=== PATIENT | female | born 1980 | race Caucasian/White ===

== ENCOUNTER 2016-10-02 10:37 | Emergency (ER) | payer OTHER ==
[~2016-10-02] VITALS: Ht 170.2 cm; Wt 131.5 kg
[~2016-10-02 10:37] MED LIST: AZIT250T6 PO; DICY20TA30 PO; FLUO40CA2 PO; LORA2TAB89 PO; ONDA4TAB7 PO; OXYC1TAB9 PO
[2016-10-02 11:59] VITALS: BP 149/88
[2016-10-02] MEDS ORDERED: CLIN-44 PO (12:39)
[2016-10-02] MEDS ORDERED: HYDR-971 PO (12:39)
--- NOTE | 2016-10-02 12:39 | PHYS DOC ---
Past Medical History Past Medical History: Anxiety, Depression, Other Additional Past Medical Histor: GALLBLADDER PROBLEMS BUT NOT REMOVED, COLITIS Past Surgical History: Tubal ligation Alcohol Use: None Drug Use: None Adult General Chief Complaint Chief Complaint: DENTAL PROBLEM HPI HPI Patient is a 36 year old female presents emergency department stating that she' s had a 3-4 day history of left lower back dental pain and discomfort. She states that she may have broken off tooth off. She states that she's had a foul taste coming from her mouth area. She states that she's had fevers at home as been taken Tylenol and ibuprofen help with this. Patient states she has a dental appointment set up for Sunday. Patient then states that she has also tried some dental wax over the area without relief. Review of Systems Review of Systems Constitutional: Denies fever or chills [] Eyes: Denies change in visual acuity, redness, or eye pain [] HENT: Denies nasal congestion or sore throat. C/o dental pain Respiratory: Denies cough or shortness of breath [] Cardiovascular: No additional information not addressed in HPI [] GI: Denies abdominal pain, nausea, vomiting, bloody stools or diarrhea [] : Denies dysuria or hematuria [] Musculoskeletal: Denies back pain or joint pain [] Integument: Denies rash or skin lesions [] Neurologic: Denies headache, focal weakness or sensory changes [] Allergies Allergies Allergies Coded Allergies Type Severity Reaction Last Updated Verified Penicillins Allergy Intermediate 05/03/16 Yes Physical Exam Physical Exam Constitutional: Well developed, well nourished, no acute distress, non-toxic appearance. [] HENT: Normocephalic, atraumatic, bilateral external ears normal, oropharynx moist, no oral exudates, nose normal. Bilateral tympanic membranes appear to be normal. Throat with no erythematous or exudate noted. Patient did have a fractured tooth on the left lower back area. Also appears that she has had a crown on the area that has been broken off. She does have tenderness along the gumline. No drainage or discharge noted. Eyes: PERRLA, EOMI, conjunctiva normal, no discharge. [] Neck: Normal range of motion, no tenderness, supple, no stridor. [] Cardiovascular:Heart rate regular rhythm, no murmur [] Lungs & Thorax: Bilateral breath sounds clear to auscultation [] Skin: Warm, dry, no erythema, no rash. [] Back: No tenderness Extremities: No tenderness, no cyanosis, no clubbing, ROM intact, no edema. [] Neurologic: Alert and oriented X 3, normal motor function, normal sensory function, no focal deficits noted. [] Psychologic: Affect normal, judgement normal, mood normal. [] Current Patient Data Vital Signs Vital Signs Date Time Temp Pulse Resp B/P Pulse Ox O2 Delivery O2 Flow Rate FiO2 10/02/16 11:59 98.1 96 16 96 Room Air 98.1 EKG EKG [] Radiology/Procedures Radiology/Procedures [] Course & Med Decision Making Course & Med Decision Making Pertinent Labs and Imaging studies reviewed. (See chart for details) She was recommended to use Tylenol and ibuprofen for fever chills generalized body aches and discomfort as well as to help with pain and discomfort. She'll be provided with some hydrocodone in which she was instructed that this medication will cause drowsiness do not take any be alert and oriented. Patient will be placed on clindamycin. Recommended her to keep her follow-up appointment on Sunday with the dentist. Patient will be discharged home in stable condition since symptoms to return back to the emergency department as been provided. Patient agrees with discharge instructions treatment regimens and follow-up recommendations. [] Dragon Disclaimer Dragon Disclaimer This electronic medical record was generated, in whole or in part, using a voice recognition dictation system. Departure Departure Impression: Primary Impression: Pain, dental Additional Impression: Dental abscess Disposition: HOME, SELF-CARE Condition: STABLE Referrals: NO PCP (PCP) Patient Instructions: Dental Abscess, Dental Pain, [id number] Additional Instructions: Activity as tolerated. Medication as prescribed. Hydrocodone will cause drowsiness do not take any be alert and oriented. Keep your follow-up appointment with her dentist that you have on Sunday. Return to the emergency department sign symptoms of become worse. Scripts Hydrocodone/Apap 5-325 ([place]rott 5-325 Tablet)1 Each Tablet1 Tab PO PRN Q6HRS PRN PAIN #6 TAB Prov:CÉSAR LEE NP 10/02/16 Clindamycin Hcl 150 Mg Capsule3 Cap PO TID 10 Days Prov:CÉSAR LEE NP 10/02/16 Problem Qualifiers CÉSAR LEE NP Oct 02, 2016 12:39
[2016-10-02] MEDS ORDERED: HYDROCODONE/APAP 5/325MG TABLET. PO ONE (13:00)
== END 2016-10-02 13:21 | disposition home or self-care (01) ==
LOC: ER 10:37
DX: K04.7 Periapical abscess without sinus (principal); F41.9 Anxiety disorder, unspecified; F32.9 Major depressive disorder, single episode, unspecified; Z88.0 Allergy status to penicillin
CPT/HCPCS: 99283